=== PATIENT | male | born 1960 | race Caucasian/White ===

== ENCOUNTER 2022-06-29 18:52 | Emergency (ER) | payer OTHER ==
[2022-06-29 19:15] VITALS: BP 119/67; PULSE 77; RESP 20; TEMP 97.8; BMI 25.4
== END 2022-06-29 21:28 | disposition home or self-care (01) ==
LOC: JER 18:52
DX: F10.129 Alcohol abuse with intoxication, unspecified (principal)
CPT/HCPCS: 99281-25